=== PATIENT | male | born 1985 | race American Indian/Alaskan Native ===

== ENCOUNTER 2020-02-25 03:41 | Emergency (ER) | payer SELFPAY ==
[2020-02-25 03:57] VITALS: BP 159/106
== END 2020-02-25 04:30 | disposition left against medical advice (07) ==
LOC: EDBD → ED 03:41
DX: R50.9 Fever, unspecified (principal); Z53.21 Procedure and treatment not carried out due to patient leaving prior to being seen by health care provider

== ENCOUNTER 2020-06-17 10:46 | Emergency (ER) | payer SELFPAY ==
[2020-06-17] MEDS ORDERED: CYCLOBENZAPRINE 10 MG TAB PO ONE (13:03)
[2020-06-17] MEDS ORDERED: ACETAMINOPHEN 325 MG TAB PO ONE (13:03)
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
[2020-06-17 14:13] VITALS: BP 141/81
== END 2020-06-17 14:12 | disposition home or self-care (01) ==
LOC: ED 10:46
DX: S39.012A Strain of muscle, fascia and tendon of lower back, initial encounter (principal); S16.1XXA Strain of muscle, fascia and tendon at neck level, initial encounter; R51.9 Headache, unspecified; W30.81XA Contact with agricultural transport vehicle in stationary use, initial encounter; Y93.89 Activity, other specified; Y92.410 Unspecified street and highway as the place of occurrence of the external cause; Y99.8 Other external cause status
CPT/HCPCS: 72040; 72100; 99283